=== PATIENT | male | born 1990 | race Caucasian/White ===

== ENCOUNTER 2019-08-10 03:57 | Emergency (ER) | payer SELFPAY ==
[~2019-08-10] VITALS: Ht 157.5 cm; Wt 69.0 kg
[2019-08-10] MEDS ORDERED: ONDANSETRON HCL 4MG/2ML INJ IV STA (04:37)
[2019-08-10] MEDS ORDERED: MORPHINE SULFATE 4 MG/ML CPJ (NOT FOR IM USE) IV STA (04:37)
[2019-08-10] MEDS ORDERED: TETANUS, DIPHTHERIA, PERTUSSIS VAC/PF 0.5ML (>7YR OLD) IM ONE (04:45)
[2019-08-10] MEDS ORDERED: BACITRACIN 15GM TUBE TOP ONE (04:45)
[2019-08-10] MEDS ORDERED: MIDAZOLAM HCL 2 MG/2 ML VIAL IV ONE (04:45)
[2019-08-10] MEDS ORDERED: BACITRACIN 15GM TUBE TOP NR (05:00)
[2019-08-10] MEDS ORDERED: MORPHINE SULFATE 4 MG/ML CPJ (NOT FOR IM USE) IV ONE ×2 (05:07→05:30)
[2019-08-10 05:48] VITALS: BP 150/77
== END 2019-08-10 06:01 | disposition home or self-care (01) ==
LOC: ER 03:57
DX: T54.3X1A Toxic effect of corrosive alkalis and alkali-like substances, accidental (unintentional), initial encounter (principal); T25.411A Corrosion of unspecified degree of right ankle, initial encounter; T25.421A Corrosion of unspecified degree of right foot, initial encounter; Y93.9 Activity, unspecified; Y92.9 Unspecified place or not applicable
CPT/HCPCS: 90471; 90715; 96374; 96375; 99283; A4217; J2250; J2270; J2405; Z7610